=== PATIENT | female | born 1945 | race Caucasian/White ===

== ENCOUNTER → 2017-02-25 | Outpatient (CLI) | payer MEDICARE ==
[2014-11-08 11:22] VITALS: BP 138/78
[~2017-02-25] MED LIST: ALBU8.5H8 INH; AMLO5TAB2 PO; ASPI-482 PO; CARV6.25 PO; LOSA1TAB17 PO
--- NOTE | 2017-02-25 16:24 | RAD ---
Right lower extremity venous duplex ultrasound 02/25/2017 Indication: Right lower extremity edema x1 month Comparison study: None Discussion: Sonographic evaluation of the deep veins of right lower extremity was performed. This includes grayscale imaging and color duplex imaging with spectral analysis. No evidence of deep venous thrombosis is seen. Interrogated veins are compressible and demonstrate augmentable blood flow and color Doppler imaging. Impression: No evidence of deep venous thrombosis involving the right lower extremity
== END | disposition home or self-care (01) ==
LOC: US 15:37
PROVIDERS: ATTEND Family Medicine
DX: M79.89 Other specified soft tissue disorders (principal)
CPT/HCPCS: 93971

== ENCOUNTER → 2017-07-08 | Outpatient (CLI) | payer MEDICARE ==
[2014-11-08 11:22] VITALS: BP 138/78
[~2017-07-08] MED LIST changes: -LOSA1TAB17 PO; +LOSA1TAB22 PO
--- NOTE | 2017-07-08 16:12 | RAD ---
Indication: Right heel pain. Time of exam 1600 hours. 2 views of the right calcaneus were obtained. There are large posterior and plantar calcaneal spurs. No fracture or stress reaction is seen. Impression: No acute bony abnormality is detected.
--- NOTE | 2017-07-08 16:13 | RAD ---
Indication: Right foot pain. Time of exam 1558 hours. 3 views of the right foot were obtained. The metatarsals are intact. No fracture or stress reaction is seen. The phalanges are intact. The midfoot and hindfoot are unremarkable apart from posterior and plantar calcaneal spurs. Impression: No acute bony abnormality is detected.
== END | disposition home or self-care (01) ==
LOC: DXRAD 15:30
PROVIDERS: ATTEND Family Medicine
DX: M77.31 Calcaneal spur, right foot (principal)
CPT/HCPCS: 73630; 73650

== ENCOUNTER 2018-08-03 12:05 | Emergency (ER) | payer MEDICARE ==
[~2018-08-03] VITALS: Ht 157.5 cm; Wt 94.3 kg
[~2018-08-03 12:05] MED LIST changes: +ALBU2.5V8 INH; -ALBU8.5H8 INH; -AMLO5TAB2 PO; +AMLO5TAB7 PO
[2018-08-03 12:47] LABS: BACTERIA,URINE FEW /HPF (0-FEW); BILIRUBIN,URINE NEG (NEG); CLARITY,URINE HAZY; COLOR,URINE YELLOW; GLUCOSE,URINE NEG (NEG); NITRITE,URINE NEG (NEG); SQUAMOUS EPITHELIAL CELL,UR FEW /LPF; UROBILINOGEN,URINE 0.2 mg/dL (0.2 mg/dL)
[2018-08-03] MEDS ORDERED: CYCL-331 PO (12:57)
[2018-08-03] MEDS ORDERED: TRAM-48 PO (12:57)
[2018-08-03] MEDS ORDERED: CIPR250T30 PO (12:57)
--- NOTE | 2018-08-03 12:57 | PHYS DOC ---
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 Patient states the pain happens only with activity or vomiting and denies nonexertional pain. Patient states the pain does not radiate and denies urinary and bowel incontinence, fever and chills, nausea and vomiting. Patient states she has leftover of Flexeril and ibuprofen with mild improvement of her pain. Review of Systems Review of Systems Constitutional: Denies fever or chills [] Eyes: Denies change in visual acuity, redness, or eye pain [] HENT: Denies nasal congestion or sore throat [] Respiratory: Denies cough or shortness of breath [] Cardiovascular: No additional information not addressed in HPI [] GI: Denies abdominal pain, nausea, vomiting, bloody stools or diarrhea [] : Denies dysuria or hematuria [] Musculoskeletal: Reports back pain, denies joint pain [] Integument: Denies rash or skin lesions [] Neurologic: Denies headache, focal weakness or sensory changes [] Endocrine: Denies polyuria or polydipsia [] All other systems were reviewed and found to be within normal limits, except as documented in this note. Allergies Allergies Allergies Coded Allergies Type Severity Reaction Last Updated Verified grass pollen-perennial rye, standar Allergy Intermediate ASTHMA 11/03/14 Yes codeine Allergy Unknown 08/03/18 Yes meperidine Allergy Unknown 08/03/18 Yes Physical Exam Physical Exam Constitutional: Well developed, well nourished, mild distress, non-toxic appearance. [] HENT: Normocephalic, atraumatic Eyes: PERRLA, EOMI, conjunctiva normal, no discharge. [] Neck: Normal range of motion, no tenderness, supple, no stridor. [] Cardiovascular:Heart rate regular rhythm, no murmur [] Lungs & Thorax: Bilateral breath sounds clear to auscultation [] Abdomen: Bowel sounds normal, soft, no tenderness, no masses, no pulsatile masses. [] Skin: Warm, dry, no erythema, no rash. [] Back: No midline tenderness, no CVA tenderness, painful range of motion. [] Extremities: No tenderness, no cyanosis, no clubbing, ROM intact, no edema. [] Neurologic: Alert and oriented X 3, normal motor function, normal sensory function, no focal deficits noted. [] Psychologic: Affect normal, judgement normal, mood normal. [] Current Patient Data Vital Signs Vital Signs Date Time Temp Pulse Resp B/P (MAP) Pulse Ox O2 Delivery O2 Flow Rate FiO2 08/03/18 12:16 98.4 66 18 98 Room Air Lab Results Laboratory Tests Test 08/03/18 12:15 Urine Collection Type Unknown Urine Color Yellow Urine Clarity Hazy Urine pH 8.[address] 1.015 Urine Protein Neg (NEG-TRACE) Urine Glucose (UA) Neg mg/dL (NEG) Urine Ketones (Stick) Neg mg/dL (NEG) Urine Blood Neg (NEG) Urine Nitrite Neg (NEG) Urine Bilirubin Neg (NEG) Urine Urobilinogen Dipstick 0.2 mg/dL (0.2 mg/dL) Urine Leukocyte Esterase Small (NEG) Urine RBC 1-2 /HPF (0-2) Urine WBC 1-4 /HPF (0-4) Urine Squamous Epithelial Cells Few /LPF Urine Transitional Epithelial Cells Occ /LPF Urine Bacteria Few /HPF (0-FEW) EKG EKG [] Radiology/Procedures Radiology/Procedures [] Course & Med Decision Making Course & Med Decision Making Pertinent Labs reviewed. (See chart for details) Evaluation of patient in ER showed 72-year-old female patient with complaining of low back pain with activity for the last few days. Patient had unremarkable physical exam except for painful range of motion. UA showed mild UTI. Patient instructed to apply ice on her back and not use heat pad. Prescription for Flexeril and Ultram was given. Dragon Disclaimer Dragon Disclaimer This electronic medical record was generated, in whole or in part, using a voice recognition dictation system. Departure Departure: Impression: Primary Impression: Acute lumbosacral myofascial strain Additional Impression: Urinary tract infection Disposition: 01 HOME, SELF-CARE (at 1254) Condition: STABLE Referrals: IDA INTERIANO MD (PCP) Patient Instructions: Lumbosacral Strain Additional Instructions: Apply ice on the affected area Drink plenty of liquids Follow-up with your primary care physician in 3-5 days Return to ER if not getting better Scripts Cyclobenzaprine Hcl (CYCLOBENZAPRINE HCL) 10 Mg Tablet 1 TAB PO TID for pain, #30 TAB Prov: NINA JIMENEZ MD 08/03/18 Tramadol Hcl (ULTRAM) 50 Mg Tablet 50 MG PO PRN Q6HRS PRN for PAIN, #20 TAB Prov: NINA JIMENEZ MD 08/03/18 Ciprofloxacin Hcl (CIPRO) 250 Mg Tablet 1 TAB PO BID for urinary tract infection, #6 TAB Prov: NINA JIMENEZ MD 08/03/18 Problem Qualifiers NINA JIMENEZ MD Aug 03, 2018 12:57
[2018-08-03 13:16] VITALS: BP 170/91
== END 2018-08-03 13:10 | disposition home or self-care (01) ==
LOC: ER 12:05
DX: S39.012A Strain of muscle, fascia and tendon of lower back, initial encounter (principal); N39.0 Urinary tract infection, site not specified; I10 Essential (primary) hypertension; Z88.5 Allergy status to narcotic agent; Z88.8 Allergy status to other drugs, medicaments and biological substances; X50.9XXA Other and unspecified overexertion or strenuous movements or postures, initial encounter; Y93.89 Activity, other specified; Y92.89 Other specified places as the place of occurrence of the external cause; Y99.8 Other external cause status
CPT/HCPCS: 81001; 87086; 99283

== ENCOUNTER → 2020-01-25 | Outpatient (CLI) | payer MEDICARE ==
[~2020-01-25] MED LIST changes: +AMLO5TAB10 PO; -AMLO5TAB7 PO; +CIPR250T30 PO; +CYCL-331 PO; +TRAM-48 PO
--- NOTE | 2020-01-25 12:46 | RAD ---
EXAM: Lumbar spine, 3 views; left hip, 2 views; femur, 2 views. HISTORY: Trauma. COMPARISON: None. FINDINGS: Lumbar spine: 3 views of the lumbar spine are obtained. There is mild lumbar dextrocurvature. There are suspected hypoplastic T12 ribs and there is a sacralized L5 segment. There is a rudimentary L5-S1 disc. There is multilevel endplate remodeling. There is disc space narrowing predominantly at L3-L4. No fracture is seen. There is a curvilinear foreign body overlying the left midabdomen. Left hip: 2 views left hip are obtained. There is no fracture, dislocation or subluxation. There is mild marginal femoral head spurring and slight acetabular labral calcification. Left femur: 2 views of the left femur are obtained. There is no fracture, dislocation or subluxation. There is enthesopathy along the superior patella. There is medial compartment joint space narrowing and spurring. There is left knee chondrocalcinosis. IMPRESSION: 1. No acute osseous finding. 2. Multilevel degenerative change involving the lumbar spine, described above. There is a transitional lumbosacral segment, a normal variant. 3. Mild left hip osteoarthritis. 4. Mild left knee osteoarthritis with associated chondrocalcinosis. Electronically signed by: Lazara Mendoza MD (01/25/2020 12:43 PM) [id number]
== END | disposition home or self-care (01) ==
LOC: DXRAD 10:30
PROVIDERS: ATTEND Family Medicine
DX: S33.39XA Dislocation of other parts of lumbar spine and pelvis, initial encounter (principal); M16.12 Unilateral primary osteoarthritis, left hip; M17.12 Unilateral primary osteoarthritis, left knee; M11.252 Other chondrocalcinosis, left hip; M47.816 Spondylosis without myelopathy or radiculopathy, lumbar region; T18.8XXA Foreign body in other parts of alimentary tract, initial encounter; X58.XXXA Exposure to other specified factors, initial encounter; Y93.89 Activity, other specified; Y92.89 Other specified places as the place of occurrence of the external cause; Y99.8 Other external cause status
CPT/HCPCS: 72100; 73502; 73552

== ENCOUNTER → 2020-02-03 | Outpatient (CLI) | payer MEDICARE ==
--- NOTE | 2020-02-03 12:31 | RAD ---
EXAMINATION: VENOUS LOWER EXTREMITY LEFT HISTORY: Pain and swelling COMPARISON/CORRELATION: None FINDINGS: Left lower extremity duplex venous ultrasound exam was performed. Grayscale, color Doppler, and spectral Doppler imaging was performed. Compression and augmentation was performed. The left common femoral vein, superficial femoral vein, popliteal vein, and saphenofemoral junction are normal with no evidence of deep venous thrombus. Visualized left calf veins are unremarkable. Normal compressibility and augmentation is evident. IMPRESSION: Normal left lower extremity duplex ultrasound exam. No evidence of deep venous thrombus involving the left lower extremity. Electronically signed by: Carlos Alberto Perez MD (02/03/2020 12:28 PM) [id number]
--- NOTE | 2020-02-03 13:45 | RAD ---
3 views left foot without comparison for fall through porch, swelling in the foot and ankle. FINDINGS: There is no definite fracture or dislocation involving the foot. No radiopaque foreign bodies are seen. Degenerative changes of first metatarsal phalangeal joint are noted. There is a small dystrophic calcification or accessory ossicle next to the navicular bone. IMPRESSION: 1. No definite acute osseous abnormality. Electronically signed by: Enrrique Hickman MD (02/03/2020 1:42 PM) [id number]
--- NOTE | 2020-02-03 13:47 | RAD ---
3 views left ankle without comparison for fall through porch, swelling and pain. FINDINGS: There is no fracture, dislocation, or acute osseous abnormality identified. Minimal degenerative changes are seen about the ankle. There is swelling over the lateral malleolus, and there may be posterior joint effusion. No anterior joint effusion is seen. IMPRESSION: 1. No acute osseous abnormality. 2. Soft tissue swelling about the lateral malleolus. Electronically signed by: Enrrique Hickman MD (02/03/2020 1:44 PM) [id number]
== END | disposition home or self-care (01) ==
LOC: US 11:09
PROVIDERS: ATTEND Family Medicine
DX: M79.89 Other specified soft tissue disorders (principal); W19.XXXA Unspecified fall, initial encounter; Y93.89 Activity, other specified; Y92.89 Other specified places as the place of occurrence of the external cause; Y99.8 Other external cause status
CPT/HCPCS: 73610; 73630; 93971